=== PATIENT | male | born 1995 | race Caucasian/White ===

== ENCOUNTER 2017-10-08 20:00 | Emergency (ER) | payer OTHER, BC, SELFPAY ==
[2017-10-08 20:07] VITALS: BP 123/61; PULSE 64; RESP 16; O2SAT 97; BMI 21.2
== END 2017-10-08 20:45 | disposition left against medical advice (07) ==
PROVIDERS: Emergency Provider Nurse Practitioner Family
DX: Z53.29 Procedure and treatment not carried out because of patient's decision for other reasons (principal); S61.239A Puncture wound without foreign body of unspecified finger without damage to nail, initial encounter

== ENCOUNTER 2020-04-19 00:05 | Emergency (ER) | payer MEDICAID, SELFPAY ==
[2020-04-19 00:15] VITALS: BP 134/62; PULSE 60; RESP 14; TEMP 36.9; O2SAT 99; BMI 23.0
--- NOTE | 2020-04-19 00:29 | HMH.EDGENADL ---
ED Disposition Clinical Impression: Odontalgia, Dental caries Disposition: Home, Self-Care Condition on Discharge: Good Instructions: DI for Dental Pain, DI for Tooth Decay Additional Instructions: Follow-up with dentist. Penicillin as prescribed. Ibuprofen for pain. Additional instructions for DENTAL PROBLEMS: See a dentist as soon as possible for further evaluation. Return immediately if you have an uncontrollable fever greater than 102 degrees, difficulty breathing or shortness of breath, persistent vomiting, or inability to swallow. Prescriptions: Ibuprofen [Ibuprofen 800mg Tab] 800 mg PO Q8HP PRN #15 tab PRN Reason: Moderate Pain Transmission Status: Pending to [facility] Penicillin V Potassium 500 mg PO QID #40 tab Transmission Status: Pending to [facility] Referrals: PCP,No [Primary Care Provider] - - Critical Care Critical Care Time: No Attestation: On 04/19/20, the high probability of a clinically significant, sudden or life threatening deterioration of the following system(s) required my full and direct attention, intervention and personal management. The time I documented below is in addition to time spent performing reported procedures but includes the following listed in this critical care notation. Medical Decision Making - Peter Inquiry Pt receiving controlled substance: No Vital Signs: 04/19/20 00:15 Temperature 98.4 F Temperature Source Oral Pulse Rate [Right] 60 Respiratory Rate 14 Blood Pressure [Right Arm] 134/62 Blood Pressure Mean [Right Arm] 86 Blood Pressure Source [Right Arm] Automatic Cuff Blood Pressure Position [Right Arm] Sitting 02 Sat by Pulse Oximetry 99 Oxygen Delivery Method Room Air Medical Decision Narrative: Noted to have been here on 08/19/2019 for a toothache in the same area. When I asked him when he last saw dentist he told me 2015. When I then mentioned to him that he was seen here July 2019 for a tooth ache in the same area and that I would repeat the same treatment he had at that time, he then changed his story and told me that he did see a dentist after that emergency department visit, in [place]. He initially told me that they only did a cleaning and exam when he saw him, but then later tells me that the dentist worked on teeth on both the left and upper maxillary areas. I find his history to be very inconsistent. On his last visit, he was treated with penicillin, injection of Toradol, prescription for Toradol, and dental balls. He says the dental balls did not work and he is not interested in getting those. General Adult HPI - General Chief complaint: Dental/Oral Stated complaint: Toothache Time Seen by Provider: 04/19/20 00:29 Mode of Arrival: Ambulatory Limitations: No Limitations Description of Symptoms (Recalled from ER Triage Doc. by RN): Left tooth ache after popping puss pocket - History of Present Illness HPI narrative: Complains of left upper toothache. States that yesterday while eating he felt like a piece of meat got stuck in his teeth. He went to the bathroom to look in the mirror and with his finger felt that there was something protruding on the lingual side of his posterior left maxillary teeth. He says he scraped it and pus shot out . He states he has continued pain since then. Denies fever. States the last time he saw dentist was in 2015. He says he is currently trying to get into a dentist now but is not having success. - Related Data Previous Rx's Medication Instructions Recorded Hydrocod/Acet 5/325 mg [[place] 1 tab PO Q6HP PRN #10 tab 07/12/18 5/325mg tablet] Ibuprofen [Ibuprofen 800mg Tab] 800 mg PO Q8HP PRN #15 tab 07/12/18 Acetaminophen [Tylenol 500mg 1,000 mg PO Q8 #60 tab 08/19/19 tablet] Ketorolac Tromethamine [Toradol 10 mg PO Q6H 5 Days #20 tab 08/19/19 10mg tablet] Penicillin V Potassium 500 mg PO BID #40 tab 08/19/19 Ibuprofen [Ibuprofen 800mg Tab] 800 mg PO
[2020-04-19 00:50] VITALS: BP 136/64; PULSE 62; RESP 16; TEMP 36.9; O2SAT 98
== END 2020-04-19 00:52 | disposition home or self-care (01) ==
PROVIDERS: Emergency Provider Emergency Medicine
DX: K02.9 Dental caries, unspecified (principal); F17.210 Nicotine dependence, cigarettes, uncomplicated
CPT/HCPCS: 96372; 99281; 99282

== ENCOUNTER 2022-03-08 23:28 | Emergency (ER) | payer MEDICAID, SELFPAY ==
[2022-03-08 23:31] VITALS: BP 145/77; PULSE 65; RESP 16; TEMP 36.9; O2SAT 100; BMI 23.7
--- NOTE | 2022-03-08 23:58 | HMH.EDDENT ---
ED Disposition Clinical Impression: Pain, dental, Dental caries, Dental infection Disposition: Home, Self-Care Condition on Discharge: Good Instructions: DI for Dental Pain Additional Instructions: pt with dental infection and pain Prescriptions: cephALEXin [cephALEXin 500mg capsule*] 500 mg PO TID #30 cap Transmission Status: Pending to [facility] clindamycin HCL [Clindamycin HCl] 300 mg PO TID #30 cap Transmission Status: Pending to [facility] Referrals: Provider,Referral, [Primary Care Provider] - - Critical Care Critical Care Time: No Attestation: On 03/08/22, the high probability of a clinically significant, sudden or life threatening deterioration of the following system(s) required my full and direct attention, intervention and personal management. The time I documented below is in addition to time spent performing reported procedures but includes the following listed in this critical care notation. Medical Decision Making - Medical Records Medical records reviewed: Yes: I reviewed the patient's medical records. - Peter Inquiry Pt receiving controlled substance: No Vital Signs: 03/08/22 23:31 Temperature 98.4 F Temperature Source Oral Pulse Rate [Left] 65 Respiratory Rate 16 Blood Pressure [Right Arm] 145/77 H Blood Pressure Mean [Right Arm] 99 02 Sat by Pulse Oximetry 100 Oxygen Delivery Method Room Air Medical Decision Narrative: has dental infection with no def abscess Dental HPI - General Chief complaint: Dental/Oral Stated complaint: Abscessed tooth Time Seen by Provider: 03/08/22 23:59 Mode of Arrival: Ambulatory Source of Information: Patient, Medical Record Limitations: No Limitations Description of Symptoms (Recalled from ER Triage Doc. by RN): pt states he has 2 broken teeth in the back upper left. pt states he was suppose to get the teeth removed in december put it off and started having pain and swelling wed has visable swelling on the mouth and tenderness and pain - History of Present Illness HPI Narrative: has progressive lt upper dental pain over the last few days Severity: moderate Context: history of dental caries, poor dental care Treatment prior to arrival: none - Related Data Previous Rx's Medication Instructions Recorded Hydrocod/Acet 5/325 mg [[place] 1 tab PO Q6HP PRN #10 tab 07/12/18 5/325mg tablet] Ibuprofen [Ibuprofen 800mg Tab] 800 mg PO Q8HP PRN #15 tab 07/12/18 Acetaminophen [Tylenol 500mg 1,000 mg PO Q8 #60 tab 08/19/19 tablet] Ketorolac Tromethamine [Toradol 10 mg PO Q6H 5 Days #20 tab 08/19/19 10mg tablet] Penicillin V Potassium 500 mg PO BID #40 tab 08/19/19 Ibuprofen [Ibuprofen 800mg Tab] 800 mg PO Q8HP PRN #15 tab 04/19/20 Penicillin V Potassium 500 mg PO QID #40 tab 04/19/20 cephALEXin [cephALEXin 500mg 500 mg PO TID #30 cap 03/09/22 capsule*] clindamycin HCL [Clindamycin HCl] 300 mg PO TID #30 cap 03/09/22 Allergies Allergy/AdvReac Type Severity Reaction Status Date / Time No Known Allergies Allergy Verified 01/02/19 16:59 [facility] History - Hepatitis A Screen Attestation statement:: This patient has been screened for Hepatitis A risk factors. I have reviewed the patient's past medical history: Yes Medical History: Denies:: Cancer, Diabetes Mellitus Type 1, Diabetes Mellitus Type 2, MRSA Other Surgeries: Yes: No Previous Surgery Amputation: No Fractures: No - Social History Smoking Status: Current every day smoker Tobacco Type: cigarettes # Packs/Day (cigarettes): 1 Alcohol Intake: never Alcohol Intake Frequency:: holidays/special occasions only Substance Use Type: denies use Occupational Status: employed Family Hx:: No significant family history ROS Obtained: Yes All systems reviewed & no additional complaints - Constitutional Constitutional: Denies fever(s) - Eyes Eyes: Denies change in vision - ENT Ears, Nose, Mouth, and Throat: Reports as per Lai ARANDA
[2022-03-09 00:23] VITALS: BP 135/87; PULSE 87; RESP 16; TEMP 37.1; O2SAT 98
== END 2022-03-09 00:26 | disposition home or self-care (01) ==
PROVIDERS: Emergency Provider Emergency Medicine
DX: K04.7 Periapical abscess without sinus (principal); K02.9 Dental caries, unspecified
CPT/HCPCS: 99283